=== PATIENT | female | born 1995 | race Caucasian/White ===

== ENCOUNTER 2018-07-31 22:41 | Emergency (ER) | payer OTHER ==
[~2018-07-31] VITALS: Ht 160 cm; Wt 57.2 kg
[2018-07-31 22:43] VITALS: BP 109/75
[2018-07-31] MEDS ORDERED: LIDOCAINE-MPF 1%, 5ML ONE (22:56)
[2018-07-31] MEDS ORDERED: DIPH,PERTUSS(ACELL),TET VAC/PF 0.5 ML IM-VACC ONE ×2 (22:58→23:00)
[2018-07-31] MEDS ORDERED: LIDOCAINE-MPF 1%, 5ML INFIL ONE (23:00)
== END 2018-08-01 00:04 | disposition home or self-care (01) ==
LOC: ED 23:24
DX: S51.832A Puncture wound without foreign body of left forearm, initial encounter (principal); W54.0XXA Bitten by dog, initial encounter; Y93.89 Activity, other specified; Y92.89 Other specified places as the place of occurrence of the external cause; Y99.8 Other external cause status
CPT/HCPCS: 90471; 90715

== ENCOUNTER → 2020-10-06 | Outpatient (CLI) | payer OTHER | END | disposition home or self-care (01) | LOC: CFH 07:38 | PROVIDERS: ATTEND Registered Nurse Medical-Surgical | DX: R10.2 Pelvic and perineal pain (principal); R30.0 Dysuria | CPT/HCPCS: 76770; 76830 ==